=== PATIENT | male | born 1935 | race African-American/Black ===

== ENCOUNTER 2016-05-06 18:41 | Emergency (ER) | payer MEDICARE, OTHER ==
[~2016-05-06 18:41] MED LIST: DIABET2.5 PO; JANUMET1 TA1 PO; MULTIVITAMI1 PO; NEUR300 PO; PRILO PO; VITAMIN C100 MG PO
== END 2016-05-06 19:43 | disposition home or self-care (01) ==
LOC: ER 18:41
PROC: 0H9TXZZ (ICD-10-PCS; principal; 2016-05-06)
DX: N61.1 Abscess of the breast and nipple (principal); E11.9 Type 2 diabetes mellitus without complications; Z79.899 Other long term (current) drug therapy
CPT/HCPCS: 99283; A9270-GY

== ENCOUNTER 2016-05-30 15:58 | Emergency (ER) | payer MEDICARE, OTHER | END 2016-05-30 20:08 | disposition home or self-care (01) | LOC: ER 15:58 | DX: S00.03XA Contusion of scalp, initial encounter (principal); K21.9 Gastro-esophageal reflux disease without esophagitis; E11.9 Type 2 diabetes mellitus without complications; Z79.899 Other long term (current) drug therapy; W19.XXXA Unspecified fall, initial encounter | CPT/HCPCS: 70450; 99284 ==